=== PATIENT | male | born 1935 | race Asian ===

== ENCOUNTER → 2016-12-02 | Outpatient (CLI) | payer OTHER ==
[~2016-12-02] MED LIST: COUMADIN5 MG PO; LISINOPRIL10 MG PO; SIMVASTATIN20 MG PO
--- NOTE | ~2016-12-02 | CR151 ---
[facility] A Service of [facility] RADIOLOGY TEXT RESULTS PATIENT: MINOO COBURN Q LOCATION: [facility] : 37 UNIT #: [id number] AGE: [address]: ANGELINE CERDA APRN SEX: M ORDER DR: [id number] [facility] [address] [place], [place] [address] [id number] O MR#: [id number] Acc #: [id number] NAME: MINOO COBURN : 1935 SEX: M STUDY DATE/TIME: 12/02/2016 10:28 UNIT: [facility] ROOM: STUDY DESCRIPTION: CR Hip Min 2 Views Rt Attending Physician: Angeline Cerda Aprn Referring Physician: Angeline Cerda Aprn Ordering Physician: Angeline Cerda Aprn Primary Care Physician: Angeline Cerda Aprn MEDICAL IMAGING REPORT This report is preliminary unless electronic signature is present EXAM Right hip 12/02/2016 INDICATIONS 81-year-old male with right-sided hip pain, difficulty walking and standing symptoms 2 weeks. TECHNIQUE 2 views of the right hip were performed. No comparisons. FINDINGS Bony pelvis intact. There is mild degenerative change of the left hip. There is advanced degenerative change of the right hip with subchondral sclerosis and cystic change primarily involving the femoral head. There is some mild sclerotic change of the acetabular side of the joint. There is partial flattening and remodeling of the femoral head. Imaging features suggest sequela of advanced degenerative change. Avascular necrosis also in the differential in the appropriate clinical context. We have no comparisons for further assessment of stability. IMPRESSION 1. 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 This likely represents sequela of osteoarthritis. Possibility of avascular necrosis also in the differential in the appropriate clinical context. 2. No acute fracture. STAT * RESULT Dictated by... Ritchie Abreu M.D. [facility] A Service of [facility] RADIOLOGY TEXT RESULTS PAT[facility]: MINOO COBURN [id number] : 37 UNIT #: [id number] AGE: [address]: ANGELINE CERDA APRN SEX: M ORDER DR: THIS IS AN ELECTRONICALLY VERIFIED REPORT Ritchie Abreu M.D. at 12/02/2016 6:06 PM NARCISA/richard TD: 12/02/2016 17:59 JOB #: [id number] MEDICAL IMAGING REPORT Page 1 of 1 COPY
== END | disposition home or self-care (01) ==
LOC: CRAD 10:20
DX: M25.551 Pain in right hip (principal)
CPT/HCPCS: 73502